=== PATIENT | male | born 1975 | race Two or more races ===

== ENCOUNTER 2024-06-06 18:54 | Emergency (ER) | payer MEDICAID, SELFPAY ==
[2024-06-06 18:55] VITALS: BMI 26.1
[2024-06-06 19:01] VITALS: BP 197/82; PULSE 98; RESP 18; TEMP 36.9; O2SAT 98
[2024-06-06 19:17] VITALS: BP 177/86; PULSE 93; RESP 18; TEMP 37.1; O2SAT 97
--- NOTE | 2024-06-06 19:17 | EKG_ITS ---
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
--- NOTE | 2024-06-06 19:34 | XR_ITS ---
Examination: PA chest single view TECHNIQUE: Upright PA chest single view Standing time: June 06, 20242001 hours INDICATIONS: Hypertension shortness of breath today. FINDINGS: Normal heart size Lungs are clear. The osseous structures are intact IMPRESSION: No active disease
--- NOTE | 2024-06-06 19:35 | EDRME_ITS ---
Rapid Medical Screening Exam [facility] Arrival date/time: 06/06/24 18:54 48M with history of CVA (no residual weakness), HTN, and DM presents to ED with 1 day of high BP and some shakiness and SOB. Patient states this is the 3rd time this has happened in the last 2 weeks. The other times, he just took some deep breaths and symptoms went away. Patient states this time it is worse. Patient denies history of anxiety/depression, as well as increased stressors in life. Patient states when this feels different compared to when he had his CVA. Chief Complaint: Recheck/Abnormal Lab/Rx Vital signs: Vital Signs Temperature 98.5 F 06/06/24 19:01 Pulse Rate 98 06/06/24 19:01 Respiratory Rate 18 06/06/24 19:01 Blood Pressure 197/82 H 06/06/24 19:01 Pulse Oximetry (%) 98 06/06/24 19:01 Oxygen Delivery Method Room Air 06/06/24 19:01
[2024-06-06 20:13] LABS: Collection Type, Urine Clean Catch; Squamous Epithelial Cell,Urine 0 /hpf (0-5); WBC,Urine 0 /hpf (0-5)
[2024-06-06 20:25] LABS: Bilirubin,Urine Negative (Negative); Blood,Urine Negative (Negative); Clarity,Urine Clear (Clear/Hazy); Color,Urine Colorless (Lt Yel-Yel); Glucose, Urine Negative (Negative); Ketones,Urine Negative (Negative); Leukocyte Esterase,Urine Negative (Negative); Nitrite,Urine Negative (Negative); Protein,Urine Negative (Neg - Trace); RBC,Urine 1 /hpf (0-3); Specific Gravity,Urine 1.014 (1.001-1.035); Urobilinogen,Urine Negative mg/dL (0.0-1.0)
[2024-06-06 21:07] LABS: Basophils % (Auto) 0 % (0-2.5); Eosinophils % (Auto) 0 % (0-10); Hematocrit 41.2 % (41.0-53.0); Hemoglobin 14.6 g/dL (13.5-16.0); Immature Granulocytes % (Auto) 0 % (0-0); Immature Granulocytes Auto 0.01 Thou/mm3 (0.00-0.00); Lymphocytes # (Auto) 1.5 Thou/mm3 (1.0-4.8); Lymphocytes % (Auto) 14 % (10-50); Mean Corpuscular HGB Conc 35.4 g/dl (31.0-37.0); Mean Corpuscular Hemoglobin 30.4 pg (25.0-35.0); Mean Corpuscular Volume 86 fL (80-100); Monocytes # (Auto) 0.7 Thou/mm3 (0.0-0.8); Monocytes % (Auto) 7 % (0-12); Neutrophils # (Auto) 8.6 Thou/mm3 (1.8-7.7); Neutrophils % (Auto) 78 % (37-80); Nucleated Red Blood Cell % 0 /100 WBC (0); Platelet Count 199 Thou/mm3 (140-440); Red Blood Count 4.81 Miln/mm3 (4.50-5.90); White Blood Count 10.9 Thou/mm3 (3.8-10.6)
[2024-06-06 21:33] LABS: Alanine Aminotransferase 14 U/L (10-49); Albumin, Serum 4.5 gm/dL (3.5-5.0); Albumin/Globulin Ratio 1.6 (1.2-2.2); Alkaline Phosphatase 53 U/L (46-116); Anion Gap 8 (7-16); Aspartate Amino Transferase 13 U/L (0-34); BUN/Creatinine Ratio 18 Ratio (12-20); Bilirubin,Total 0.4 mg/dL (0.3-1.2); Blood Urea Nitrogen 22 mg/dL (9-23); Calcium 9.3 mg/dL (8.3-10.6); Calcium (Corrected) 9.3 mg/dL (8.5-10.1); Carbon Dioxide 28.4 mMol/L (20.0-31.0); Chloride 105 mMol/L (98-107); Creatinine (Component) 1.2 mg/dL (0.6-1.3); Estimated Creatinine Clearance 73.6 mL/min (>60); Globulin 2.8 gm/dL (2.3-3.5); Glucose 123 mg/dL (74-106); Magnesium 1.6 mg/dL (1.6-2.6); Osmolality,Calculated 285 (275-295); Potassium 3.7 mMol/L (3.4-5.1); Sodium 141 mMol/L (136-145); Total Protein 7.3 gm/dL (5.7-8.2); Troponin I < 0.020 ng/mL (0.0-0.045); eGFR > 60 See Note
[2024-06-06 22:05] VITALS: BP 158/78; PULSE 94; RESP 18; TEMP 36.9; O2SAT 98
--- NOTE | 2024-06-06 22:21 | EDNOTE_ITS ---
ED Recheck Abnl Lab Rx-RME/HPI General Chief Complaint: Recheck/Abnormal Lab/Rx Stated Complaint: HIGH BP AND SHAKING A LOT HX OF CVA Time Seen by Provider: 06/06/24 22:16 Arrival date/time: 06/06/24 18:54 RME / HPI RME / HPI narrative: 48M with history of CVA (no residual weakness), HTN, and DM presents to ED with 1 day of high BP and some shakiness and SOB. Patient states this is the 3rd time this has happened in the last 2 weeks. The other times, he just took some deep breaths and symptoms went away. Patient states this time it is worse. Patient denies history of anxiety/depression, as well as increased stressors in life. Patient states when this feels different compared to when he had his CVA. Patient denies any other complaints. Related Data Previous Rx's ?Medication ?Instructions ?Recorded blood-glucose sensor (FreeStyle #1 ea 11/01/23 Wagner 3 Sensor device) insulin glargine 100 unit/mL (3 10 unit (0.1 mL) subcu t QPM #15 mL 11/01/23 mL) subcutaneous pen (Lantus Solostar U-100 Insulin) metformin 500 mg tablet,extended 500 mg PO QDAY #30 ta bs 11/01/23 release 24 hr pen needle, diabetic 29 gauge x #100 ea 11/01/23 1/2 semaglutide 0.25 mg or 0.5 mg (2 0.25 mg (0.368 mL) ross bcut QWEEK #3 11/01/23 mg/3 mL) subcutaneous pen injector mL (Ozempic) Allergies Allergy/AdvReac Type Severity Reaction Status Date / Time Penicillins Allergy Severe Hives Verified 06/06/24 18:57 Review of Systems Review of Systems Narrative Review of Systems: Review of system reviewed and within normal limits except mentioned in HPI ED Exam Narrative Physical exam: VITAL SIGNS: Reviewed. GENERAL APPEARANCE: Alert and interactive, follows commands, no acute distress, HEAD AND FACE: Non-traumatic. ENT: PERRL, pink conjunctivitis, eyelid no trauma, Mucous membrane moist. NECK: Supple, nontender, no nuchal rigidity. CHEST: No tenderness, no crepitus, no paradoxical movement, no retractions. LUNGS: Clear, well ventilated, symmetric, no rales, no wheezing, no ronchi, no stridor, good breath sounds bilaterally. HEART: Regular rate, regular rhythm, no murmur, no gallops. ABDOMEN: Soft, positive bowel sounds, nondistended, no guarding, nontender, no rebound, no masses, RECTAL: Deferred. GENITAL: Deferred. NEUROLOGICAL: Gross motor function intact sensory function intact, Appropriate for age. MUSCULOSKELETAL: low back nontender, full range of motion. EXTREMITIES: Nontender, full range of motion. SKIN: Color pink, dry, no rash, no lacerations, no abrasions, no contusions. LYMPHATICS: Deferred. Course Quality Measures none Orders Category Date Time Status Blood glucose [Bedside Blood Glucose] NOW Care 06/06/24 19:17 Active EKG (ED ONLY) *Do not use* NOW Care 06/06/24 19:17 Completed EKG (ED Only) Stat Exams 06/06/24 19:17 Draft XR chest 1V portable Stat Exams 06/06/24 19:34 Completed CBC Stat Lab 06/06/24 20:50 Completed Comprehensive Metabolic Panel Stat Lab 06/06/24 20:50 Completed Magnesium Stat Lab 06/06/24 20:50 Completed Troponin I Stat Lab 06/06/24 20:50 Completed Urinalysis Stat Lab 06/06/24 20:00 Completed Vital Signs Vital signs: Vital Signs Temperature 98.5 F 06/06/24 19:01 Pulse Rate 98 06/06/24 19:01 Respiratory Rate 18 06/06/24 19:01 Blood Pressure 197/82 H 06/06/24 19:01 Pulse Oximetry (%) 98 06/06/24 19:01 Oxygen Delivery Method Room Air 06/06/24 19:01 Recheck / Abnormal Lab / Rx MDM Narrative MDM Narrative:: 48M with history of CVA (no residual weakness), HTN, and DM presents to ED with 1 day of high BP and some shakiness and SOB. Patient states this is the 3rd time this has happened in the last 2 weeks. The other times, he just took some deep breaths and symptoms went away. Patient states this time it is worse. Patient denies history of anxiety/depression, as well as increased stressors in life. Patient states when this feels different compared to when he had his CVA. Patient denies any other complaints. Patient's laboratory workup all came back unremarkable troponin is normal urinalysis no UTI chest x-ray came back unremarkable EKG as interpreted by me showed sinus rhythm, ventricular rate of 52 bpm, TN interval 132 MS, no ST segment elevation depression noted. Patient data External records reviewed:: None Clinical information provided by:: patient Social determinants that could affect healthcare access:: none Patient has the following chronic illnesses:: Hypertension diabetes mellitus CVA How is presenting disease/condition affected by chronic disease/condition?: exacerbated by Evaluation data The following diagnostics were reviewed and interpreted by me:: lab results, radiology exam(s) and EKG tracing(s) Lab and/or radiology exams considered but not ordered:: None Interpretation Summary: See results in MDM Medications / Prescriptions Medications or Prescriptions considered but not ordered:: None Medication administrations:: None Consultations Consultation(s) initiated? (list below): No Diagnosis Recheck Differential Diagnosis: other (She kidneys, hypertensive urgency,) Most likely diagnosis given after review of the tests above:: Hypertensive urgency Admission Indicated Admission indicated?: not indicated Admission Request Was there a request for admission?: No Disposition Plan Disposition Plan: Discharge Discharge Attestation Discharge Attestation: The patient and all family members were given an opportunity to ask questions a nd understood the discharge instructions. Discharge instructions specifically effects, indications for sooner follow up or return to the emergency department, and the expected course of current diagnosis. Patient condition: Stable Discharge Plan Plan Patient Disposition: HOME (Self Care) Disposition Comment: stable Prescriptions/Referrals Prescriptions/Med Rec: No Action metformin 500 mg tablet extended release 24 hr 500 mg PO QDAY Qty: 30 0RF insulin glargine [Lantus Solostar U-100 Insulin] 100 unit/mL (3 mL) insulin pen 10 unit subcut QPM Qty: 15 0RF Ozempic 0.25 mg or 0.5 mg (2 mg/3 mL) pen injector 0.25 mg subcut QWEEK Qty: 3 0RF Rx Instructions: for 4 weeks (DME) pen needle, diabetic 29 gauge x 1/2 needle See Rx Instructions .Route Qty: 100 0RF Rx Instructions: As directed (DME) FreeStyle Wagner 3 Sensor Device See Rx Instructions .Route Qty: 1 2RF Rx Instructions: As directed Referrals: No Primary/Family,Physician [Primary Care Provider] - In 1 week Problem List Clinical Impression: Hypertension Patient/Caregiver Discharge Instructions Education Materials: ED High Blood Pressure ... Additional Instructions: Thank you for the opportunity for serving you today. You are stable for discharged . You are advised to: Follow-up with your PCP in 1 to 2 days Return to ED for worsening of symptoms Print Language: Ukrainian Stand Alone Forms: [facility]he[facility] Award Info., Patient Portal Info Letter PA/LEIDY Supervising Physician LEEANN/LEIDY Supervising Physician: MD Primitivo
== END 2024-06-06 22:29 | disposition home or self-care (01) ==
PROVIDERS: Physician Assistant; Emergency Provider Emergency Medicine
DX: I10 Essential (primary) hypertension (principal); E11.9 Type 2 diabetes mellitus without complications; Z86.73 Personal history of transient ischemic attack (TIA), and cerebral infarction without residual deficits
CPT/HCPCS: 36415; 71045; 80053; 81001; 83735; 84484; 85025; 93005; 99283